=== PATIENT | female | born 1995 | race Caucasian/White ===

== ENCOUNTER 2016-11-18 10:15 | Emergency (ER) | payer OTHER ==
[2016-11-18 10:29] VITALS: BP 126/67
[2016-11-18] MEDS ORDERED: IPRATROPIUM/ALBUTEROL 0.5-2.5 MG/3 ML AMPUL NEB ONE (10:33)
[2016-11-18] MEDS ORDERED: PREDNISONE 20 MG TABLET PO ONE (10:33)
--- NOTE | 2016-11-18 10:33 | ER Document Report ---
ED Medical Screen (RME) - General Stated Complaint: COUGH Mode of Arrival: Ambulatory Information source: Patient Notes: Patient complains of productive cough for the past week. Patient denies any fever. Patient additionally complains of sore throat. hx: Asthma I have greeted and performed a rapid initial assessment of this patient. A comprehensive ED assessment and evaluation of the patient, analysis of test results and completion of the medical decision making process will be conducted by additional ED providers. TRAVEL OUTSIDE OF THE [place] IN LAST 30 DAYS: No - Related Data Allergies/Adverse Reactions: Sulfa (Sulfonamide Antibiotics) Allergy (Severe, Verified 10/03/15 10:08) Anaphylaxis Past Medical History Pulmonary Medical History: Reports: Hx Asthma, Hx Bronchitis, Hx Pneumonia Neurological Medical History: Reports: Hx Migraine Musculoskeltal Medical History: Reports Hx Musculoskeletal Deformity, Reports Hx Musculoskeletal Trauma Psychiatric Medical History: Reports: Hx Anxiety, Hx Depression Past Surgical History: Reports: Hx Adenoidectomy, Hx Oral Surgery - wisdom teetn , Hx Tonsillectomy - Immunizations Immunizations up to date: Yes Hx Diphtheria, Pertussis, Tetanus Vaccination: Yes Physical Exam - Vital signs Vitals: Temp Pulse Resp BP Pulse Ox 97.9 F 97 16 126/67 H 97 11/18/16 10:11/18/16 10:11/18/16 10:11/18/16 10:11/18/16 10:28 - Respiratory Respiratory status: No respiratory distress Breath sounds: Nonproductive cough, Wheezing Course - Vital Signs Vital signs: Temp Pulse Resp BP Pulse Ox 97.9 F 97 16 126/67 H 97 11/18/16 10:11/18/16 10:28 11/18/16 10:28 11/18/16 10:28 11/18/16 10:28
--- NOTE | 2016-11-18 12:58 | ER Document Report ---
ED Respiratory Problem - General Chief Complaint: Productive Cough Stated Complaint: COUGH Mode of Arrival: Ambulatory Information source: Patient Notes: 21-year-old female with past medical history of asthma requiring admission one year ago without any previous intubations who presents today with the onset 5 days ago of runny nose, congestion, with progression to a cough with green phlegm. She has an albuterol inhaler at home. She states when she coughs she has some anterior chest pain. She denies any calf pain, leg swelling, or recent trips or travel. TRAVEL OUTSIDE OF THE [place] IN LAST 30 DAYS: No - HPI Patient complains to provider of: Asthma Onset: Other - See above Duration: Better Quality of pain: Achy Severity: Mild Pain Level: Denies Context: Other - See above Short of Breath: Mild Chest pain/discomfort: Center Cough: Productive Sputum amount: Small Sputum color: Green At home treatment: Bronchodilators Associated symptoms: Other - See above Similar symptoms previously: Yes Recently seen / treated by doctor: Yes - Related Data Allergies/Adverse Reactions: Sulfa (Sulfonamide Antibiotics) Allergy (Severe, Verified 11/18/16 10:34) Anaphylaxis Past Medical History - General Information source: Patient - Social History Smoking Status: Unknown if Ever Smoked Chew tobacco use (# tins/day): No Frequency of alcohol use: None Drug Abuse: None Family History: Arthritis, CAD, CVA, DM, Hyperlipidemia, Hypertension Patient has suicidal ideation: No Patient has homicidal ideation: No Pulmonary Medical History: Reports: Hx Asthma, Hx Bronchitis, Hx Pneumonia Neurological Medical History: Reports: Hx Migraine Renal/ Medical History: Denies: Hx Peritoneal Dialysis Musculoskeltal Medical History: Reports Hx Musculoskeletal Deformity, Reports Hx Musculoskeletal Trauma Psychiatric Medical History: Reports: Hx Anxiety, Hx Depression Past Surgical History: Reports: Hx Adenoidectomy, Hx Oral Surgery - wisdom teetn , Hx Tonsillectomy - Immunizations Immunizations up to date: Yes Hx Diphtheria, Pertussis, Tetanus Vaccination: Yes Hx Pneumococcal Vaccination: 12/25/12 Review of Systems - Review of Systems Constitutional: denies: Fever EENT: Nose congestion, Nose discharge. denies: Eye discharge Cardiovascular: Chest pain - See above Respiratory: Cough, Short of breath. denies: Hemoptysis Gastrointestinal: denies: Vomiting Genitourinary: denies: Dysuria Musculoskeletal: denies: Leg swelling Skin: Other - no hives. denies: Rash Neurological/Psychological: Other - no slurred speech -: Yes All other systems reviewed and negative Physical Exam - Vital signs Vitals: Temp Pulse Resp BP Pulse Ox 97.9 F 97 16 126/67 H 97 11/18/16 10:28 11/18/16 10:28 11/18/16 10:28 11/18/16 10:28 11/18/16 10:28 Notes: Reviewed vital signs and nursing note as charted by RN. CONSTITUTIONAL: Alert and oriented and responds appropriately to questions. Well -appearing; well-nourished HEAD: Normocephalic; atraumatic EYES: PERRL; Conjunctivae clear, sclerae non-icteric ENT: Normal nose; bilateral nonpurulent rhinorrhea; moist mucous membranes; pharynx without lesions noted CARD: Regular rate and rhythm; no murmurs, no clicks, no rubs, no gallops; symmetric distal pulses RESP: Normal chest excursion without splinting or tachypnea; no tenderness to palpation of the chest wall with no erythema or crepitus noted; breath sounds clear and equal bilaterally; faint scattered end expiratory wheezing without any obvious rhonchi. ABD/GI: Normal bowel sounds; non-distended; soft, non-tender, no rebound, no guarding; no palpable organomegaly or masses BACK: The back appears normal and is non-tender to palpation, there is no CVA tenderness EXT: Normal ROM in all joints; non-tender to palpation; no cyanosis, no effusions, no edema SKIN: Normal color for age and race; warm; dry; good turgor; capillary refill < 2 seconds; no acute lesions noted NEURO: Moves all extremities equally; Motor and sensory function intact PSYCH: The patient's mood and manner are appropriate. Grooming and personal hygiene are appropriate. Course - Re-evaluation Re-evalutation: Patient has excellent oxygen saturation. Patient has been provided steroids here in the facility. Vital signs otherwise stable. Low suspicion for ACS, PE , or aortic dissection. Chest x-ray shows normal heart, normal mediastinum, no fractures, normal lung samayoa, no pneumothorax. 11/18/16 12:56 Patient's breathing has improved. Good oxygen saturation. Improved wheezing. We will provide 1 more nebulizer, 5 day course of steroids, refill on the nebulizer inhaler, and strict return precautions. - Vital Signs Vital signs: Temp Pulse Resp BP Pulse Ox 97.9 F 97 16 126/67 H 97 11/18/16 10:28 11/18/16 10:28 11/18/16 10:28 11/18/16 10:28 11/18/16 10:28 Discharge - Discharge Clinical Impression: Nasal congestion, Cough, Wheezing Condition: Good Disposition: HOME, SELF-CARE Additional Instructions: Come back immediately with any worsening wheezing, fevers, vomiting, chest pain , calf pain or leg swelling, fevers, or any other acute problems. Prescriptions: Albuterol Sulfate [Proair HFA Inhalation Aerosol 8.5 gm MDI] 2 puff IH Q4H PRN # 1 mdi PRN Reason: Prednisone [Deltasone 20 mg Tablet] 3 tab PO DAILY 5 Days
[2016-11-18] MEDS ORDERED: IPRATROPIUM/ALBUTEROL 0.5-2.5 MG/3 ML AMPUL NEB SCH (13:00)
== END 2016-11-18 13:08 | disposition home or self-care (01) ==
LOC: ER 10:15
DX: R05 Cough (principal); R09.81 Nasal congestion; R06.2 Wheezing; Z88.2 Allergy status to sulfonamides
CPT/HCPCS: 94640 ×2; 99283; 71020; J7512; J7620

== ENCOUNTER 2017-11-06 15:42 | Emergency (ER) | payer OTHER ==
[2017-11-06] MEDS ORDERED: ONDANSETRON HCL INJ/PF 4 MG/2 ML SDV IV ONE ×2 (16:57→20:20)
[2017-11-06] MEDS ORDERED: MORPHINE SULFATE 10 MG/ML INJ IV ONE (16:57)
[2017-11-06] MEDS ORDERED: NORMAL SALINE 1000 ML 1,000 ML IV ONE (16:57)
--- NOTE | 2017-11-06 16:59 | ER Document Report ---
ED Medical Screen (RME) - General Chief Complaint: Abdominal Pain Stated Complaint: ABDOMINAL PAIN Time Seen by Provider: 11/06/17 16:57 Mode of Arrival: Ambulatory Information source: Patient Notes: Patient woke up this morning with severe right lower quadrant abdominal pain. She has had nausea but no vomiting. No diarrhea. No dysuria. She is on her menstrual cycle. She is in no previous abdominal surgeries. TRAVEL OUTSIDE OF THE [place] IN LAST 30 DAYS: No - Related Data Allergies/Adverse Reactions: Sulfa (Sulfonamide Antibiotics) Allergy (Severe, Verified 11/06/17 15:43) Anaphylaxis Past Medical History Pulmonary Medical History: Reports: Hx Asthma, Hx Bronchitis, Hx Pneumonia Neurological Medical History: Reports: Hx Migraine Renal/ Medical History: Denies: Hx Peritoneal Dialysis Musculoskeltal Medical History: Reports Hx Musculoskeletal Deformity, Reports Hx Musculoskeletal Trauma Psychiatric Medical History: Reports: Hx Anxiety, Hx Depression Past Surgical History: Reports: Hx Adenoidectomy, Hx Oral Surgery - wisdom teetn , Hx Tonsillectomy - Immunizations Immunizations up to date: Yes Hx Diphtheria, Pertussis, Tetanus Vaccination: Yes Physical Exam - Vital signs Vitals: Temp Pulse Resp BP Pulse Ox 99.2 F 120 H 17 116/72 99 11/06/17 15:53 11/06/17 15:53 11/06/17 15:53 11/06/17 15:53 11/06/17 15:53 Course - Vital Signs Vital signs: Temp Pulse Resp BP Pulse Ox 99.2 F 120 H 17 116/72 99 11/06/17 15:53 11/06/17 15:53 11/06/17 15:53 11/06/17 15:53 11/06/17 15:53
[2017-11-06 17:50] LABS: APPEARANCE,URINE SLIGHTLY-CLOUDY; BILIRUBIN,URINE NEGATIVE (NEGATIVE); COLOR,URINE YELLOW; GLUCOSE, URINE NEGATIVE (NEGATIVE); KETONES,URINE 20 mg/dL (NEGATIVE); LEUKOCYTE ESTERASE,URINE LARGE (NEGATIVE); NITRITE,URINE NEGATIVE (NEGATIVE); PROTEIN,URINE NEGATIVE (NEGATIVE); URINE SPECIFIC GRAVITY 1.012; UROBILINOGEN,URINE NEGATIVE mg/dL (<2.0)
--- NOTE | 2017-11-06 18:49 | RADIOLOGY REPORT (SQ) ---
EXAM DESCRIPTION: CT ABD/PELVIS WITH IV ONLY COMPLETED DATE/TIME: 11/06/2017 6:31 pm REASON FOR STUDY: rlq abd pain COMPARISON: None. TECHNIQUE: CT scan of the abdomen and pelvis performed using helical scanning technique with dynamic intravenous contrast injection. No oral contrast. Images reviewed with lung, soft tissue, and bone windows. Reconstructed coronal and sagittal MPR images reviewed. Delayed images for evaluation of the urinary system also acquired. All images stored on PACS. All CT scanners at this facility use dose modulation, iterative reconstruction, and/or weight based d osing when appropriate to reduce radiation dose to as low as reasonably achievable (ALARA). [facility]: Dose Right [facility]: CareDose [facility]: Dose Right [facility]: Teradose 4D [facility]: KUBOO CONTRAST TYPE AND DOSE: contrast/concentration: Isovue 370.00 mg/ml; Total Contrast Delivered: 81.0 ml; Total Saline Delivered: 41.0 ml RENAL FUNCTION: None required. The patient is less than 50 years old. RADIATION DOSE: CT Rad equipment meets quality standard of care and radiation dose reduction techniq ues were employed. CTDIvol: 9.0 - 12.6 mGy. DLP: 1071 mGy-cm.. LIMITATIONS: None. FINDINGS: LOWER CHEST: No significant findings. No nodules or infiltrates. LIVER: Normal size. No masses. No dilated ducts. SPLEEN: Normal size. No focal lesions. PANCREAS: No masses. No significant calcifications. No adjacent inflammation or peripancreatic fluid collections. Pancreatic duct not dilated. GALLBLADDER: No identified stones by CT criteria. No inflammatory changes to suggest cholecystitis. ADRENAL GLANDS: No significant masses or asymmetry. RIGHT KIDNEY AND URETER: There are two 1cm cortically based hypodensities in the upper pole of the ri ght kidney. Mild enhancement of the proximal right ureteral wall. No significant calcifications. No hydronephrosis or hydroureter. LEFT KIDNEY AND URETER: No solid masses. No significant calcifications. No hydronephrosis or hydr oureter. AORTA AND VESSELS: No aneurysm. No dissection. Renal arteries, SMA, celiac without stenosis. RETROPERITONEUM: No retroperitoneal adenopathy, hemorrhage or masses. BOWEL AND PERITONEAL CAVITY: No masses or inflammatory changes. No free fluid or peritoneal masses. APPENDIX: Normal. PELVIS: No mass. No free fluid. Normal bladder. ABDOMINAL WALL: No masses. No hernias. BONES: No significant or acute findings. OTHER: No other significant finding. IMPRESSION: There are two 1cm cortically based hypodensities in the upper pole of the right kidney. Mild enhancement of the proximal right ureteral wall. Correlate clinically to exclude right pyelone phritis. The appendix is normal. TECHNICAL DOCUMENTATION: JOB ID: [id number] [place]-72 Quality ID # [id number]: Final reports with documentation of one or more dose reduction techniques (e.g., Au tomated exposure control, adjustment of the mA and/or kV according to patient size, use of iterative reconstruction technique) 2010 [employer]- All Rights Reserved
[2017-11-06 19:46] LABS: ABSOLUTE BASOPHILS # (AUTO) 0.1 10^3/uL (0.0-0.2); ABSOLUTE LYMPHOCYTES (AUTO) 1.2 10^3/uL (0.5-4.7); ABSOLUTE MONOCYTES (AUTO) 1.1 10^3/uL (0.1-1.4); ABSOLUTE NEUT (AUTO) 12.5 10^3/uL (1.7-8.2); BASOPHILS % (AUTO) 0.4 % (0-2); HEMATOCRIT 41.8 % (36.0-47.0); LYMPHOCYTES % (AUTO) 8.1 % (13-45); MEAN CORPUSCULAR HEMOGLOBIN 29.2 pg (27.0-33.4); MEAN CORPUSCULAR HGB CONC 33.4 g/dL (32.0-36.0); MEAN CORPUSCULAR VOLUME 87 fl (80-97); MONOCYTES % (AUTO) 7.6 % (3-13); PLATELET COUNT 265 10^3/uL (150-450); RED BLOOD COUNT 4.79 10^6/uL (3.72-5.28); RED CELL DISTRIBUTION WIDTH 13.9 % (11.5-14.0); SEGMENTED NEUTROPHILS % (AUTO) 83.9 % (42-78); TOTAL CELLS COUNTED % (AUTO) 100 %; WHITE BLOOD COUNT 14.9 10^3/uL (4.0-10.5)
[2017-11-06] MEDS ORDERED: CEFTRIAXONE 1 GM/D5W RTU 1 GM/50 ML RTUPB IV ONE (20:20)
[2017-11-06] MEDS ORDERED: KETOROLAC TROMETHAMINE INJ/PF 30 MG/1 ML SDV IV ONE (20:20)
--- NOTE | 2017-11-06 20:25 | ER Document Report ---
ED General - General Chief Complaint: Abdominal Pain Stated Complaint: ABDOMINAL PAIN Time Seen by Provider: 11/06/17 16:57 Mode of Arrival: Ambulatory Notes: This is a 22-year-old female patient to the emergency department complaining of right flank pain. Thinks that she had a UTI a few days ago. Has gotten worse. Pain is on the right flank. Not feeling well. Some nausea but no vomiting. No other major symptoms at this time. Denies any abdominal pain. TRAVEL OUTSIDE OF THE [place] IN LAST 30 DAYS: No - HPI Onset: Yesterday Onset/Duration: Gradual, Worse Quality of pain: Throbbing Severity: Moderate Pain Level: 2 Associated symptoms: None Exacerbated by: Denies - Related Data Allergies/Adverse Reactions: Sulfa (Sulfonamide Antibiotics) Allergy (Severe, Verified 11/06/17 15:43) Anaphylaxis Past Medical History - General Information source: Patient - Social History Smoking Status: Never Smoker Cigarette use (# per day): No Frequency of alcohol use: None Drug Abuse: None Lives with: Spouse/Significant other Family History: Arthritis, CAD, CVA, DM, Hyperlipidemia, Hypertension Pulmonary Medical History: Reports: Hx Asthma, Hx Bronchitis, Hx Pneumonia Neurological Medical History: Reports: Hx Migraine Renal/ Medical History: Denies: Hx Peritoneal Dialysis Musculoskeltal Medical History: Reports Hx Musculoskeletal Deformity, Reports Hx Musculoskeletal Trauma Psychiatric Medical History: Reports: Hx Anxiety, Hx Depression Past Surgical History: Reports: Hx Adenoidectomy, Hx Oral Surgery - wisdom teetn , Hx Tonsillectomy - Immunizations Immunizations up to date: Yes Hx Diphtheria, Pertussis, Tetanus Vaccination: Yes Hx Pneumococcal Vaccination: 12/25/12 Review of Systems - Review of Systems Constitutional: denies: Fever, Malaise, Weakness EENT: denies: Eye discharge, Blurred vision, Sinus pressure, Sinus discharge Cardiovascular: denies: Chest pain, Palpitations, Heart racing, Dyspnea, Syncope Respiratory: denies: Cough, Hurts to breathe, Short of breath, Sputum Gastrointestinal: Other. denies: Abdomen distended, Abdominal pain, Diarrhea, Nausea, Vomiting Genitourinary: Burning - Right flank pain, Flank pain, Urgency Female Genitourinary: Last menstrual period - Last menstrual period yesterday. denies: Heavy/abnormal periods, Irregular period, Vaginal discharge Musculoskeletal: Back pain. denies: Joint pain, Muscle pain, Muscle stiffness Skin: denies: Lesions, Rash Hematologic/Lymphatic: denies: Blood clots, Easy bleeding, Easy bruising Neurological/Psychological: denies: Depression, Anxiety, Gait changes, Numbness Physical Exam - Vital signs Vitals: Temp Pulse Resp BP Pulse Ox 99.2 F 120 H 17 116/72 99 11/06/17 15:53 11/06/17 15:53 11/06/17 15:53 11/06/17 15:53 11/06/17 15:53 Interpretation: Normal - General General appearance: Appears well, Alert - HEENT Head: Normocephalic, Atraumatic Eyes: Normal Pupils: PERRL - Respiratory Respiratory status: No respiratory distress Chest status: Nontender Breath sounds: Normal Chest palpation: Normal - Cardiovascular Rhythm: Regular Heart sounds: Normal auscultation Murmur: No - Abdominal Inspection: Normal Distension: No distension Bowel sounds: Normal Tenderness: Nontender Organomegaly: No organomegaly - Back Back: Normal, Tender Notes: Right flank tenderness to percussion - Extremities General upper extremity: Normal inspection, Nontender, Normal color, Normal ROM , Normal temperature General lower extremity: Normal inspection, Nontender, Normal color, Normal ROM , Normal temperature, Normal weight bearing. No: Arya's sign - Neurological Neuro grossly intact: Yes Cognition: Normal Orientation: AAOx4 Robert Coma Scale Eye Opening: Spontaneous Robert Coma Scale Verbal: Oriented Doon Coma Scale Motor: Obeys Commands Doon Coma Scale Total: 15 Speech: Normal Motor strength normal: LUE, RUE, LLE, RLE Sensory: Normal - Psychological Associated symptoms: Normal affect, Normal mood - Skin Skin Temperature: Warm Skin Moisture: Dry Skin Color: Normal Course - Re-evaluation Re-evalutation: 11/06/17 20:27 This is a well-appearing 22-year-old female with symptoms and physical exam consistent with pyelonephritis. Giving IV antibiotics, Toradol, fluids, Zofran. Will discharge on Cipro. Patient advised to return immediately if she cannot keep her medications down as this could develop into a severe infection. Patient verbalizes understanding these instructions and patient will be discharged at this time in stable condition. - Vital Signs Vital signs: Temp Pulse Resp BP Pulse Ox 99.2 F 120 H 17 116/72 99 11/06/17 15:53 11/06/17 15:53 11/06/17 15:53 11/06/17 15:53 11/06/17 15:53 - Laboratory Result Diagrams: 11/06/17 19:35 11/06/17 19:35 Laboratory results interpreted by me: 11/06/17 11/06/17 17:30 19:35 WBC 14.9 H Seg Neutrophils % 83.9 H Lymphocytes % 8.1 L Absolute Neutrophils 12.5 H Urine Ketones 20 H Urine Blood SMALL H Ur Leukocyte Esterase LARGE H Discharge - Discharge Clinical Impression: Pyelonephritis Condition: Good Disposition: HOME, SELF-CARE Instructions: Pyelonephritis ([facility]) Additional Instructions: These follow-up with your regular doctor for repeat evaluation. If you are unable to keep your medications down please return immediately. Prescriptions: Ciprofloxacin HCl [Cipro 500 mg Tablet] 500 mg PO BID #20 tablet Ondansetron [Zofran Odt 4 mg Tablet] 1 - 2 tab PO Q4H PRN #15 tab.rapdis PRN Reason: For Nausea/Vomiting Ondansetron [Zofran Odt 4 mg Tablet] 1 - 2 tab PO Q4H PRN #15 tab.rapdis PRN Reason: For Nausea/Vomiting Forms: Return to Work
[2017-11-06] MEDS ORDERED: CEFTRIAXONE SODIUM 1,000 MG in NORMAL SALINE 50 ML IV ONE (21:15)
[2017-11-06 21:26] VITALS: BP 119/74
== END 2017-11-06 21:26 | disposition home or self-care (01) ==
LOC: ER 15:42
DX: N12 Tubulo-interstitial nephritis, not specified as acute or chronic (principal); R10.9 Unspecified abdominal pain; R39.15 Urgency of urination; R11.0 Nausea; J45.909 Unspecified asthma, uncomplicated; Z87.892 Personal history of anaphylaxis; Z88.2 Allergy status to sulfonamides
CPT/HCPCS: 96376; 99284; 96361; 96375; 96365; 36415; 85025; 81025; 81001; 74177; J1885; J2270; J0696; J2405; J7030